=== PATIENT | female | born 1940 | race Caucasian/White ===

== ENCOUNTER 2017-03-09 18:50 | Inpatient (IN) | payer OTHER ==
[2017-03-09 19:04] VITALS: BMI 22.2
--- NOTE | 2017-03-09 20:09 | DR.GENAD ---
HPI - PCP Primary Care Physician: RADHA - HPI Comment HPI Comment: Pt has shingles and c/o of pain. She also c/o right flank pain that is different from the shingles pain.She denies h/o kidney stones. She is incontinent of urine and denies burning upon urinatrion. She is presently taking a z-pack for her bronchitis and she normally sleep with O2 since her LLL pulmonary lobectomy for cancer. - Complaint/Symptoms Chief Complaint Doctors Comments: "I'm in pain" Chief Complaint:: SHINGLES LEFT SIDE, PRODUCTIVE COUGH, Self Treatment fo Chief Complaint: CREAM FROM SHINGLES, Z PHOEBE - Nurses notes reviewed Nurses Notes Review: Yes - Source History Provided: Patient - Mode of Arrival Mode of Arrival: Ambulatory - Timing Onset of Chief Complaint: 02/28/17 Came on: Gradually - Duration Duration: Intermittent How lon Duration: Days - Severity Severity: Moderate - Associated Signs and Symptoms Associated Signs and Symptoms: fever and cough. PMH - PMH Past Medical History: Yes Past Medical History: Arthritis, COPD, Hypertension Past Medical History Comment: LUNG CA Past Surgical History: Yes Surgical History: Thyroidectomy Past Surgical History Comment: LOWER LEFT LOBECTOMY - Family History History of Family Medical Conditions: Yes Family Medical History: Cancer Family Medical History Comment: FATHER - Social History Does patient currently use any type of tobacco product: No Have you used tobacco products in the last 12 months: No Type of Tobacco Use: None Does any household member use tobacco: No Alcohol Use: Occasionally Do you use any recreational Drugs:: No Lives With: Alone Lives Where: Home - infectious screening In the last 2 months have you had wt loss of >10#?: NO Have you had fever, night sweats or hemotysis?: No Have you traveled outside the country in the last 6 months?: No Isolation: Standard ROS - Review of Systems Constitutional: Fever, Weakness, Irritable Eyes: No Symptoms Reported ENTM: No Symptoms Reported Respiratoy: Moist Cough Cardiovascular: No Symptoms Reported Gastrointestinal/Abdominal: No Symptoms Reported Genitourinary: See HPI Neurological: Other (shingles pain) Musculoskeletal: No Symptoms Reported Integumentary: Lesions (Shingles back and l side and under l breast) Hematologic/Lymphatic: No Symptoms Reported Endocrine: No Symptoms Reported Psychiatric: No Symptoms Reported All Other Systems: Reviewed and Negative PE - Vital Signs Vitals: Temperature 98.1 F Pulse Rate 85 Respiratory Rate 16 Blood Pressure 145/69 O2 Sat by Pulse Oximetry 96 - General Limitations: No Limitations General Appearance: Alert, Anxious - Head Head Exam: Normal Inspection - Neck Neck Exam: Normal Inspection, Full ROM, Trachea Midline - Chest Chest Inspection: Rash, Other (shingles/ blisters on back and left side and under her left breast.) - Respiratory Respiratory Exam: Normal Lung Sounds Bilat, Chest Wall Tenderness Respiratory Exam: Bilateral Clear to Auscultation - Cardiovascular Cardiovascular Exam: Regular Rate, Normal Rhythm, Normal Heart Sounds - Abdominal Exam Abdominal Exam: Normal Inspection - Extremities Extremities Exam: Normal Inspection - Back Back Exam: (R) CVA Tenderness - Neurologic Neurological Exam: Alert, Oriented X3, CN II-XII Intact - Psychiatric Psychiatric Exam: Normal Affect, Normal Mood - Skin Skin Exam: Warm, Dry MDM - Differential Diagnosis Differential Diagnosis: shingles, kidney stones, UTI, pneumonia ROR - Labs Reviewed Laboratory Results Reviewed?: Yes Result Diagrams: 03/09/17 20:28 03/09/17 20: Laboratory: WBC 14.7 X10^3/uL (3.6-10.0) H 03/09/17 20:28 RBC 3.51 X10^6/uL (3.5-5.4) 03/09/17 20: Hgb 10.4 g/dL (12.0-16.0) L 03/09/17 20:28 Hct 29.5 % (36.0-47.0) L 03/09/17 20: MCV 84.1 fL (80.0-100.0) 03/09/17 20: MCH 29.6 pg (27.0-34.0) 03/09/17 20: MCHC 35.2 g/dL (33.0-35.0) H 03/09/17 20:28 RDW 13.8 % (11.6-16.5) 03/09/17 20: Plt Count 573 X10^3/uL (150.0-450.0) H 03/09/17 20:28 MPV 5.6 fL (7.4-11.0) L 03/09/17 20: Neut % 83.6 % (42.0-75.0) H 03/09/17 20:28 Lymph % 9.0 % (21.0-51.0) L 03/09/17 20: [place] % 6.6 % (0.0-13.0) 03/09/17 20: Eos % 0.4 % (0.9-2.9) L 03/09/17 20: Baso % 0.4 % (0.2-1.0) 03/09/17 20: Neut # 12.3 x10^3/uL (2.2-4.8) H 03/09/17 20: Lymph # 1.3 X10^3/uL (1.3-2.9) 03/09/17: [place] # 1.0 x10^3/uL (0.3-0.8) H 03/09/17 20: Eos # 0.1 x10^3/uL (0.0-0.2) 03/09/17 20: Baso # 0.1 X10^3/uL (0.0-0.1) 03/09/17 20: Absolute Nucleated RBC 0.0 /100WBC 03/09/17 20: Sodium 128 mmol/L (136-145) L 03/09/17 20: Corrected Sodium TNP 03/09/17 20: Potassium 4.0 mmol/L (3.5-5.1) 03/09/17 20: Chloride 90 mmol/L (98-107) L 03/09/17 20: Carbon Dioxide 29.2 mmol/L (21-32) 03/09/17 20: BUN 6 mg/dL (7-18) L 03/09/17 20: Creatinine 0.54 mg/dL (0.55-1.02) L 03/09/17 20:28 Est GFR (MDRD) Af Amer > 60 (>60) 03/09/17 20: Est GFR (MDRD) Non-Af > 60 (>60) 03/09/17 20: Glucose 108 mg/dL (65-99) H 03/09/17 20: Calcium 8.8 mg/dL (8.5-10.1) 03/09/17 20: Corrected Calcium 9.8 mg/dL (8.5-10.1) 03/09/17 20: Total Bilirubin 0.50 mg/dL (0.2-1.0) 03/09/17 20:28 AST 19 Units/L (15-37) 03/09/17 20:28 ALT 43 Units/L (12-78) 03/09/17 20: Alkaline Phosphatase 94 Units/L (46-116) 03/09/17 20: Total Protein 8.0 g/dL (6.4-8.2) 03/09/17 20: Albumin 2.7 g/dL (3.4-5.0) L 03/09/17 20: Globulin 5.3 g/dL (2.5-4.5) H 03/09/17 20: Albumin/Globulin Ratio 0.5 Ratio (1.1-2.1) L 03/09/17 20:28 Specimen Type Clean catch urine 03/09/17 22:31 Urine Color Yellow (YELLOW) 03/09/17 22: Urine Appearance Clear (CLEAR) 03/09/17 22: Urine pH 8.0 (5.0 - 8.0) 03/09/17 22: Ur Specific [place] 1.010 (1.000-1.030) 03/09/17 22: Urine Protein 2+ (NEGATIVE) 03/09/17 22: Urine Glucose (UA) Negative (NEGATIVE) 03/09/17 22: Urine Ketones 1+ (NEGATIVE) 03/09/17 22:31 Urine Occult Blood 2+ (NEGATIVE) 03/09/17 22: Urine Nitrite Negative (NEGATIVE) 03/09/17 22: Urine Bilirubin Negative (NEGATIVE) 03/09/17 22: Urine Urobilinogen Normal (NORMAL) 03/09/17 22: Ur Leukocyte Esterase Negative (NEGATIVE) 03/09/17 22: Urine RBC 2-6 /HPF (NEGATIVE) 03/09/17 22: Urine WBC 0-3 /HPF (NEGATIVE) 03/09/17 22:31 Ur Squamous Epith Cells Rare /HPF (NEGATIVE) 03/09/17 22:31 Urine Bacteria Negative /HPF (NEGATIVE) 03/09/17 22:31 Ur Culture Indicated? No/not indicated 03/09/17 22: - Diagnosis Discharge Problem: Flank pain, acute, Bronchitis, Right lower lobe lung mass, Hyponatremia Shingles outbreak Qualifiers: Herpes zoster complications: without complications Qualified Code(s): B02.9 - Zoster without complications - Discharge Plan Disposition: 09 ADMITTED INPATIENT Condition: Stable - Follow ups/Referrals Follow ups/Referrals: JULIET BROWN [Primary Care Provider] - 3 days - Instructions Instructions: Flank Pain, [id number] Additional Instructions: I spoke with Dr. Escalante and he agrees to accept this patient for observation.
[2017-03-09] MEDS ORDERED: ZOVIRAX VIAL 500 MG 1,000 MG in NS 250 ML IV 250 ML IV ONE (20:22)
[2017-03-09] MEDS ORDERED: TORADOL 30 MG VIAL IVP ONE (20:25)
[2017-03-09 20:38] LABS: BASOPHILS # (AUTO) 0.1 X10^3/uL (0.0-0.1); BASOPHILS % (AUTO) 0.4 % (0.2-1.0); EOSINOPHILS # (AUTO) 0.1 x10^3/uL (0.0-0.2); EOSINOPHILS % (AUTO) 0.4 % (0.9-2.9); HEMATOCRIT 29.5 % (36.0-47.0); HEMOGLOBIN 10.4 g/dL (12.0-16.0); LYMPHOCYTES # (AUTO) 1.3 X10^3/uL (1.3-2.9); MEAN CORPUSCULAR HEMOGLOBIN 29.6 pg (27.0-34.0); MEAN CORPUSCULAR HGB CONC 35.2 g/dL (33.0-35.0); MEAN CORPUSCULAR VOLUME 84.1 fL (80.0-100.0); MEAN PLATELET VOLUME 5.6 fL (7.4-11.0); MONOCYTES % (AUTO) 6.6 % (0.0-13.0); NEUTROPHILS # (AUTO) 12.3 x10^3/uL (2.2-4.8); NEUTROPHILS % (AUTO) 83.6 % (42.0-75.0); PLATELET COUNT 573 X10^3/uL (150.0-450.0); RED BLOOD COUNT 3.51 X10^6/uL (3.5-5.4); RED CELL DISTRIBUTION WIDTH 13.8 % (11.6-16.5); WHITE BLOOD COUNT 14.7 X10^3/uL (3.6-10.0)
[2017-03-09] MEDS ORDERED: NS 1000 ML 1,000 ML ONE (20:45)
[2017-03-09] MEDS ORDERED: TORADOL 30 MG VIAL ONE (20:45)
[2017-03-09 20:52] LABS: ALANINE AMINOTRANSFERASE 43 Units/L (12-78); ALBUMIN 2.7 g/dL (3.4-5.0); ALKALINE PHOSPHATASE 94 Units/L (46-116); ASPARTATE AMINO TRANSFERASE 19 Units/L (15-37); BLOOD UREA NITROGEN 6 mg/dL (7-18); CALCIUM 8.8 mg/dL (8.5-10.1); CARBON DIOXIDE 29.2 mmol/L (21-32); CHLORIDE 90 mmol/L (98-107); COR CA(FOR HYPOALB) 9.8 mg/dL (8.5-10.1); CREATININE 0.54 mg/dL (0.55-1.02); SODIUM 128 mmol/L (136-145); eGFR BLACK RACES > 60 (>60); eGFR NON BLACK RACES > 60 (>60)
[2017-03-09 21:08] LABS: GLUCOSE 108 mg/dL (65-99)
--- NOTE | 2017-03-09 21:24 | RAD ---
HISTORY: Shortness of breath, right flank pain, history of lung cancer Study: Acute abdominal series Comparison: None Findings: There is a rounded mass in the right lower lobe measuring up to 8.7 cm concerning for malignancy. Th e lungs are clear without consolidation, effusion or pneumothorax. The cardiac and mediastinal conto urs are within normal limits. Flat plate and upright evaluation of the abdomen demonstrates a normal bowel gas pattern. No gross f ree intraperitoneal air. No pathological soft tissue mass or calcification can be observed. Multile crys thoracolumbar degenerative changes are present with rightward scoliosis of the lumbar spine. IMPRESSION: 1. Right lower lobe mass measuring 8.7 cm concerning for malignancy. 2. No evidence of acute abdominal pathology. Reported By:
[2017-03-09] MEDS ORDERED: KAYEXALATE ONE (22:38)
[2017-03-09] MEDS ORDERED: NS 100 ML IV 100 ML IV ONE (22:41)
[2017-03-09 23:02] LABS: BILIRUBIN,URINE NEGATIVE (NEGATIVE); BLOOD/HEMOGLOBIN,URINE 2+ (NEGATIVE); GLUCOSE, URINE NEGATIVE (NEGATIVE); KETONES,URINE 1+ (NEGATIVE); LEUKOCYTE ESTERASE ,URINE NEGATIVE (NEGATIVE); NITRITES,URINE NEGATIVE (NEGATIVE); PROTEIN,URINE 2+ (NEGATIVE); UROBILINOGEN,URINE NORMAL (NORMAL)
--- NOTE | 2017-03-09 23:14 | CT ---
EXAM: CTA CHEST WITH CONTRAST INDICATION: Chest mass COMPARISION: No priors for comparison TECHNIQUE: Spiral CT of the chest was performed with contrast. Thin reconstructions in the axial and para-coron al planes were obtained. 3D MIP imaging sequences were obtained using the axial data. The patient re ceived intravenous contrast without adverse reaction. FINDINGS: There is a 5.7 x 6.2 cm mass in the posterior lateral aspect of the right lower lobe. The mass has a cystic component which occupies most of the volume. There is a thick irregular outer wall. Chronic emphysematous changes are seen throughout both lungs. Atherosclerotic changes are seen in the aorta. No aneurysm or dissection. Shotty mediastinal lymph nodes are present. No pulmonary embolism. The h eart size is within normal limits. The regional skeleton is intact. IMPRESSION: There is a 5.7 x 6.2 cm mass in the posterior lateral aspect of the right lower lobe. The large cent ral region of complex fluid may indicate a lung abscess or a necrotic mass. Reported By:
[2017-03-09 23:20] LABS: APPEARANCE,URINE CLEAR (CLEAR); BACTERIA,URINE NEGATIVE /HPF (NEGATIVE); COLOR,URINE YELLOW (YELLOW); SQUAMOUS EPITHELIAL CELL,UR RARE /HPF (NEGATIVE)
[2017-03-10] MEDS ORDERED: ULTRAM PO ONE (00:35)
[2017-03-10] MEDS ORDERED: HumuLIN R SUBCUT PRN (00:46)
[2017-03-10] MEDS ORDERED: DESYREL PO ONE ×2 (00:47→12:44)
[2017-03-10] MEDS ORDERED: LEVAQUIN PREMIX IV 500 MG 500 MG/100 ML BAG IV ONE (00:57)
[2017-03-10] MEDS: NS 1000 ML 1,000 ML IV SCH ×2 (01:50→15:52)
[2017-03-10] MEDS ORDERED: ZOFRAN INJ 4 MG VIAL IVP PRN (03:11)
[2017-03-10] MEDS ORDERED: PHENERGAN INJ 25 MG IV PRN (03:22)
[2017-03-10 06:11] LABS: BASOPHILS % (AUTO) 0.2 % (0.2-1.0); EOSINOPHILS % (AUTO) 0.1 % (0.9-2.9); HEMATOCRIT 27.9 % (36.0-47.0); HEMOGLOBIN 9.7 g/dL (12.0-16.0); LYMPHOCYTES # (AUTO) 0.6 X10^3/uL (1.3-2.9); LYMPHOCYTES % (AUTO) 3.2 % (21.0-51.0); MEAN CORPUSCULAR HEMOGLOBIN 29.6 pg (27.0-34.0); MEAN CORPUSCULAR HGB CONC 34.7 g/dL (33.0-35.0); MEAN CORPUSCULAR VOLUME 85.5 fL (80.0-100.0); MEAN PLATELET VOLUME 5.9 fL (7.4-11.0); MONOCYTES # (AUTO) 0.9 x10^3/uL (0.3-0.8); MONOCYTES % (AUTO) 4.9 % (0.0-13.0); NEUTROPHILS # (AUTO) 16.1 x10^3/uL (2.2-4.8); NEUTROPHILS % (AUTO) 91.6 % (42.0-75.0); PLATELET COUNT 543 X10^3/uL (150.0-450.0); RED BLOOD COUNT 3.27 X10^6/uL (3.5-5.4); RED CELL DISTRIBUTION WIDTH 13.8 % (11.6-16.5); WHITE BLOOD COUNT 17.6 X10^3/uL (3.6-10.0)
[2017-03-10 06:39] LABS: ALANINE AMINOTRANSFERASE 40 Units/L (12-78); ALBUMIN 2.4 g/dL (3.4-5.0); ALKALINE PHOSPHATASE 91 Units/L (46-116); ASPARTATE AMINO TRANSFERASE 19 Units/L (15-37); BLOOD UREA NITROGEN 6 mg/dL (7-18); CALCIUM 8.4 mg/dL (8.5-10.1); CARBON DIOXIDE 28.8 mmol/L (21-32); CHLORIDE 92 mmol/L (98-107); COR CA(FOR HYPOALB) 9.7 mg/dL (8.5-10.1); COR NA(FOR HYPERGLY) 130 mmol/L (136-145); CREATININE 0.62 mg/dL (0.55-1.02); GLUCOSE 140 mg/dL (65-99); SODIUM 129 mmol/L (136-145); TOTAL PROTEIN 7.7 g/dL (6.4-8.2); eGFR BLACK RACES > 60 (>60); eGFR NON BLACK RACES > 60 (>60)
[2017-03-10 07:24] LABS: BAND NEUTROPHILS % 2 % (0-10)
[2017-03-10 07:25] LABS: PLATELET MORPHOLOGY COMMENT NORMAL (NORMAL)
[2017-03-10] MEDS ORDERED: LEVAQUIN PREMIX IV 500 MG 500 MG/100 ML BAG IV SCH ×2 (09:00→21:00)
[2017-03-10] MEDS: ULTRAM PO SCH ×3 (10:57→21:23)
[2017-03-10] MEDS: SOLU-Medrol 40 MG VIAL IVP SCH ×3 (10:57→22:27)
[2017-03-10] MEDS: PROTONIX INJ 40 MG VIAL IVP SCH (10:57)
--- NOTE | 2017-03-10 11:11 | DR.H&P ---
H&P - History & Physical for Day of: H&P Date: 03/10/17 - Chief Complaint Chief Complaint: IS A 76 YEAR OLD WHITE FEMALE WHO PRESENTED TO THE EMERGENCY ROOM WITH COMPLAINTS OF SEVERE PAIN TO THE RIGHT FLANK, BACK, AND CHEST. SHE REPORTS A PRODUCTIVE COUGH X 3 DAYS. SHE IS CURRENTLY TAKING A ZPAC THAT WAS PRESCRIBED TO HER FOR BRONCHITIS. ASSOCIATED SYMPTOMS ARE FEVER AND NAUSEA. PATIENT ALSO REPORTS THAT SHE IS CURRENTLY BEING TREATED FOR SHINGLES TO THE LEFT SIDE, BUT STATES THAT HER PAIN IS DIFFERENT FROM SHINGLES PAIN. SHE REPORTS A HISTORY OF LUNG CANCER AND LLL LOBECTOMY IN JULY OF 2015 AT [facility]. LUNGS WERE CLEAR TO AUSCULTATION. ON ARRIVAL TO ER, VITALS WERE 98.1 -85-16-96%-145/69. CBC REPORTS WBC 14.7, HGB 10.4, HCT 29.5. CMP REPORTS SODIUM 128, CHLORIDE 90, BUN 6, CREATININE 0.54, GLUCOSE 108, ALBUMIN 2.7. ABDOMINAL XRAY REPORTED NEGATIVE FOR ACUTE ABDOMINAL PATHOLOGY, AND A RIGHT LOWER LOBE MASS. A CHEST CT WAS OBTAINED. IT REPORTED A 5.7X6.2 CM MASS IN THE POSTERIOR LATERAL ASPECT OF THE RIGHT LOWER LOBE. THE LARGE CENTRAL REGION OF COMPLEX FLUID MAY INDICATE A LUNG ABSCESS OR A NECROTIC MASS. EKG REPORTS SINUS RHYTHM RATE OF 86. SHE WAS GIVEN LEVAQUIN 500MG, ULTRAM 100MG, TORADOL 30MG, ZOVIRAX 1000 MG, AND TRAZODONE 50MG IN ER WITH NO IMPROVEMENT IN PAIN. WE ADMITTED PATIENT FOR FURTHER TREATMENT AND EVALUATION. WE STARTED HER ON NS 80ML/HR, LEVAQUIN 500MG DAILY, PHENERGAN 12.5MG Q6H PRN. ON MORNING ROUNDS, PATIENT IS ALERT AND ORIENTED, LYING IN BED. SHE CONTINUES WITH COMPLAINTS OF RIGHT SIDE CHEST, FLANK, AND BACK PAIN. LUNGS ARE CLEAR TO AUSCULTATION. VITALS THIS AM WERE 98.3-75-16-98%-152/70. CBC REPORTS WBC 17.6, RBC 3.27, HGB 9.7, HCT 27.9. CMP REPORTS SODIUM 129, POTASSIUM 4.2, BUN 6, CREATININE 0.62, GLUCOSE 140, CALCIUM 8.4, AST 19, ALT 40, ALKALINE PHOSPHATASE 91, TOTAL PROTEIN 7.7, ALBUMIN 2.4. WE WILL START HER ON SOLU-MEDROL 40MG IV Q8H, TRAMADOL 50MG QID, AND PROTONIX 40MG DAILY. WE PLAN TO RECHECK LABS AND FOLLOW UP WITH PATIENT IN AM. - Allergies Allergies/Adverse Reactions: Allergies Allergy/AdvReac Type Severity Reaction Status Date / Time codeine AdvReac Verified 03/09/17 19:05 - Past Medical History Past Medical History: Arthritis, Asthma, COPD, Hypertension Additional Medical History: EMPHYSEMA, LUNG CANCER - Past Surgical History Surgical History: Ortho Surgery, Thyroidectomy Additional Surgical History: LLL LOBECTOMY - Family History Family Medical History: Cancer - Social History Does patient currently use any type of tobacco product: No Have you used tobacco products in the last 12 months: No Type of Tobacco Use: Cigarettes How many years tobacco product used: 40 Does any household member use tobacco: No Alcohol Use: Occasionally, DAILY Drug Use: None - Medications Home Medications: Albuterol Sulfate [Proair Hfa] 2 puff INH PRN PRN 03/09/17 [History Confirmed ] Amlodipine Besylate [Norvasc] 1 tab PO HS 03/09/17 [History Confirmed 03/10/17] Fluticasone Furoate [Arnuity Ellipta] 1 puff INH DAILY 03/09/17 [History Confirmed 03/10/17] Levothyroxine Sodium 1 tab PO DAILY 03/09/17 [History Confirmed 03/10/17] Lisinopril [ZESTRIL *] 1 tab PO DAILY 03/09/17 [History Confirmed 03/10/17] Montelukast Sodium 1 tab PO DAILY 03/09/17 [History Confirmed 03/10/17] Pravastatin Sodium 1 tab PO DAILY 03/09/17 [History Confirmed 03/10/17] - Review of Systems Constitutional: Fever, Weakness Eyes: No Symptoms Reported ENT: No Symptoms Reported Respiratory: See HPI, Cough, Shortness of Breath, Sputum Cardiovascular: denies: No Symptoms Reported, Chest Pain, See HPI, Palpitations , Orthopnea, Paroxysmal Noc. Dyspnea, Edema, Light Headedness, Other Gastrointestinal: Nausea. denies: No Symptoms Reported, See HPI, Vomiting, Abdominal Pain, Diarrhea, Constipation, Melena, Hematochezia, Other Genitourinary: No Symptoms Reported. denies: See HPI, Dysuria, Frequency, Incontinence, Hematuria, Retention, Other Musculoskeletal: Back Pain. denies: No Symptoms Reported, See HPI, Shoulder Pain, Arm Pain, Hand Pain, Leg Pain, Foot Pain, Neck Pain, Other Skin: See HPI, Lesions. denies: No Symptoms Reported, Rash, Jaundice, Bruising , Wound, Ecchymosis, Other Neurological: No Symptoms Reported. denies: See HPI, Weakness, Numbness, Incoordination, Change in Speech, Confusion, Seizures, Other - Physical Exam Vital Signs: Temperature 98.0 F Pulse Rate [Left Brachial] 84 Respiratory Rate 24 Blood Pressure [Left Arm] 161/72 O2 Sat by Pulse Oximetry 96 Oriented: Normal. negative: Time, Person, Place, Not Oriented, Unable to test, Other Eyes: Normal. negative: Blurred Vision, Diplopia, Discharge, Pain, Redness, Photophobia, Other Ear: Normal. negative: Right, Left, Swelling, Ecchymosis, Hemotypanum, Abrasion , Laceration Nose: Normal. negative: Injected, Discharge, Blood, Other Throat: Normal. negative: Tonsillar Hypertrophy, Red, Exudate, Dry, Other Respiratory: Clear Throughout, LLL Diminished. negative: Diminished Throughout , Rhonchi Throughout, Rales Throughout, Wheezes Throughout, RUL Clear, RML Clear , RLL Clear, YULIET Clear, LML Clear, LLL Clear, RUL Diminished, RML Diminished, RLL Diminished, YULIET Diminished, LML Diminished, RUL Absent, RML Absent, RLL Absent, YULIET Absent, LML Absent, LLL Absent, RUL Rhonchi, RML Rhonchi, RLL Rhonchi, YULIET Rhonchi, LML Rhonchi, LLL Rhonchi, RUL Insp. Wheeze, RML Insp. Wheeze, RLL Insp. Wheeze, YULIET Insp.Wheeze, LML Insp.Wheeze, LLL Insp.Wheeze, RUL Exp. Wheeze, RML Exp. Wheeze, RLL Exp. Wheeze, YULIET Exp. Wheeze, LML Exp. Wheeze, LLL Exp. Wheeze, RUL Rales, RML Rales, RLL Rales, YULIET Rales, LML Rales, LLL Rales, RUL Rub, RML Rub, RLL Rub, YULIET Rub, LML Rub, LLL Rub, RUL Squeak, RML Squeak, RLL Squeak, YULIET Squeak, LML Squeak, LLL Squeak Cardiovascular: Normal. negative: Tachycardia, Bradycardia, Irregular, S3, S4, Systolic, Diastolic, Murmur, Edema, Other : negative: Normal, Dysuria, Hematuria, Frequency, Discharge, Testicular Pain , Bleeding, , Other Auscultation: Bowel Sounds: Normal. negative: Bruit, Absent, Increased, Decreased, High Pitched, Other Palpation: Normal. negative: Spleen Enlarged, Liver Enlarged, Mass Pulsatile, Other Tenderness: Normal. negative: Diffuse, RUQ, RLQ, LUQ, LLQ, Epigastric, Periumbilical, Suprapubic, Mild, Moderate, Severe, Rebound, Guarding, Rigidity, Other Skin: Normal, Papular, Red Musculoskeletal: negative: Normal, Right, Left, Shoulder, Clavicle, Arm, Elbow, Forearm, Wrist, Hand, Hip, Thigh, Knee, Leg, Ankle, Foot, Back:Thoracic, Back: Lumbar, Back:Midline, Back:Paraspinous, Pelvis, Swelling, Tender, Deformity, Pulse Deficit, Motor Deficit, Sensory Deficit, Instability, Crepitance Psychiatric: Normal. negative: Anxiety, Depression, Agitation, Other Mood Description: Calm. negative: Angry, Apathetic, Depressed, Fearful, Flat, Happy, Hostile, Sad, Suspicious, Withdrawn, Anxious, Appropriate, Labile Affect: Normal. negative: Angry, Anxious, Depressed, Flat, Hysterical, Quiet, Violent Speech Pattern: Clear. negative: Appropriate, Unclear, Inappropriate, Delayed, Slurred, Excessive, Aphasic, Artificially Ventilated - Assessment/Plan (1) Right lower lobe lung mass Status: Acute Plan: TRAMADOL 50MG Q6H, CONTINUE TO MONITOR (2) Bronchitis Status: Acute Plan: SOLU-MEDROL 40MG IV Q8H, LEVAQUIN 500MG DAILY, CONTINUE TO MONITOR (3) Shingles outbreak Qualifiers: Herpes zoster complications: without complications Herpes zoster neurologic complication detail: H Herpes zoster ocular complication detail: H Qualified Code(s): B02.9 - Zoster without complications Status: Acute Plan: CONTINUE TO MONITOR
[2017-03-10] MEDS ORDERED: PATIENT'S HOME MEDICATION (Albuterol Sulfate [Proair Hfa] 2 PUFF) INH PRN (12:12)
[2017-03-10] MEDS ORDERED: FLUTICASONE FUROATE INH SCH (12:15)
[2017-03-10] MEDS ORDERED: PROVENTIL NEB TX 0.083% 2.5MG/ 3ML NEB PRN (13:00)
[2017-03-10] MEDS: ALBUMIN HUMAN 25%- 100ML 100 ML IV SCH (15:53)
[2017-03-10] MEDS ORDERED: NORVASC TAB 2.5 MG ONE (19:58)
[2017-03-10] MEDS: PULMICORT NEB TX 0.5 MG NEB SCH (20:03)
[2017-03-10] MEDS ORDERED: PRAVACHOL PO SCH (21:00)
[2017-03-10] MEDS: NORVASC TAB 2.5 MG PO SCH ×2 (21:24→22:07)
[2017-03-10] MEDS ORDERED: RESTORIL CAP 15 MG PO PRN (21:37)
[2017-03-11] MEDS: SOLU-Medrol 40 MG VIAL IVP SCH (05:30)
[2017-03-11] MEDS: ULTRAM PO SCH ×2 (05:31→11:34)
[2017-03-11] MEDS: NS 1000 ML 1,000 ML IV SCH (05:35)
[2017-03-11 06:31] LABS: BASOPHILS % (AUTO) 0.2 % (0.2-1.0); HEMATOCRIT 28.7 % (36.0-47.0); HEMOGLOBIN 9.9 g/dL (12.0-16.0); LYMPHOCYTES # (AUTO) 0.6 X10^3/uL (1.3-2.9); LYMPHOCYTES % (AUTO) 5.7 % (21.0-51.0); MEAN CORPUSCULAR HEMOGLOBIN 29.3 pg (27.0-34.0); MEAN CORPUSCULAR HGB CONC 34.5 g/dL (33.0-35.0); MEAN CORPUSCULAR VOLUME 85.1 fL (80.0-100.0); MEAN PLATELET VOLUME 5.9 fL (7.4-11.0); MONOCYTES # (AUTO) 0.3 x10^3/uL (0.3-0.8); MONOCYTES % (AUTO) 3.2 % (0.0-13.0); NEUTROPHILS # (AUTO) 10.1 x10^3/uL (2.2-4.8); NEUTROPHILS % (AUTO) 90.9 % (42.0-75.0); PLATELET COUNT 532 X10^3/uL (150.0-450.0); RED BLOOD COUNT 3.37 X10^6/uL (3.5-5.4); WHITE BLOOD COUNT 11.1 X10^3/uL (3.6-10.0)
[2017-03-11 06:44] LABS: ALANINE AMINOTRANSFERASE 35 Units/L (12-78); ALBUMIN 2.6 g/dL (3.4-5.0); ALKALINE PHOSPHATASE 83 Units/L (46-116); ASPARTATE AMINO TRANSFERASE 17 Units/L (15-37); BLOOD UREA NITROGEN 10 mg/dL (7-18); CALCIUM 8.7 mg/dL (8.5-10.1); CARBON DIOXIDE 29.9 mmol/L (21-32); CHLORIDE 96 mmol/L (98-107); COR CA(FOR HYPOALB) 9.8 mg/dL (8.5-10.1); COR NA(FOR HYPERGLY) 133 mmol/L (136-145); CREATININE 0.54 mg/dL (0.55-1.02); GLUCOSE 137 mg/dL (65-99); SODIUM 132 mmol/L (136-145); TOTAL PROTEIN 7.7 g/dL (6.4-8.2); eGFR BLACK RACES > 60 (>60); eGFR NON BLACK RACES > 60 (>60)
[2017-03-11 07:07] LABS: PLATELET MORPHOLOGY COMMENT NORMAL (NORMAL)
[2017-03-11] MEDS: PULMICORT NEB TX 0.5 MG NEB SCH (08:51)
[2017-03-11] MEDS ORDERED: PATIENT'S HOME MEDICATION (Pravastatin Sodium [Pravastatin Sodium] 1 TAB) PO SCH (09:00)
[2017-03-11] MEDS ORDERED: ZESTRIL TAB 20 MG PO SCH (09:00)
[2017-03-11] MEDS ORDERED: SYNTHROID 100 mcg TAB PO SCH (09:00)
[2017-03-11] MEDS ORDERED: SINGULAIR TAB 10 MG PO SCH (09:00)
[2017-03-11] MEDS: PROTONIX INJ 40 MG VIAL IVP SCH (11:33)
[2017-03-11] MEDS: ALBUMIN HUMAN 25%- 100ML 100 ML IV SCH (11:33)
[2017-03-11 11:47] VITALS: BP 160/74
== END 2017-03-11 12:40 | disposition home or self-care (01) | DRG 204 ==
LOC: ER 19:21 → OBS 03-10 00:44 → MED/SURG 03-10 15:30
PROVIDERS: ADMIT Internal Medicine; ATTEND Internal Medicine
DX: R91.8 Other nonspecific abnormal finding of lung field (principal); J40 Bronchitis, not specified as acute or chronic; B02.9 Zoster without complications; J44.9 Chronic obstructive pulmonary disease, unspecified; I10 Essential (primary) hypertension; M13.89 Other specified arthritis, multiple sites; R94.31 Abnormal electrocardiogram [ECG] [EKG]; R10.84 Generalized abdominal pain; Z85.118 Personal history of other malignant neoplasm of bronchus and lung
CPT/HCPCS: 36415; 71260; 74022; 80053; 81001; 85025; 87040; 87070; 87205; 93005; 93010; 94640; 94760; 96365; 96374; 96375; 99284; A4216; A4222; C9113; P9047; J0133; J1885; J1956; J2550; J2920; J7613; J7626